=== PATIENT | male | born 1945 | race Two or more races ===

== ENCOUNTER 2016-05-03 23:58 | Inpatient (IN) | payer MEDICARE, MEDICAID ==
[~2016-05-03] VITALS: Ht 170.2 cm; Wt 69.4 kg
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
--- NOTE | 2016-05-04 00:20 | NUR ---
URINE SAMPLE OBTAINED FROM PT.
[2016-05-04 01:07] LABS: BASOPHILS % (AUTO) 0.3 % (0.0-2.0); EOSINOPHILS # (AUTO) 0.1 /CMM (0.0-0.7); EOSINOPHILS % (AUTO) 0.9 % (0.0-6.0); HEMATOCRIT 44 % (39-51); HEMOGLOBIN 14.5 g/dL (13.5-17.5); LYMPHOCYTES # (AUTO) 1.5 /CMM (0.8-4.8); LYMPHOCYTES % (AUTO) 21.5 % (20.0-44.0); MEAN CORPUSCULAR HEMOGLOBIN 29 PG (26.0-33.0); MEAN CORPUSCULAR HGB CONC 33 g/dl (31.0-36.0); MEAN CORPUSCULAR VOLUME 88 fL (80-96); MONOCYTES # (AUTO) 0.7 /CMM (0.1-1.30); MONOCYTES % (AUTO) 9.3 % (2.0-12.0); NEUTROPHILS # (AUTO) 4.9 /CMM (1.8-8.9); PLATELET COUNT (AUTO) 237 /CMM (150-450); RDW COEFFICIENT OF VARIATION 12.7 (11.5-15.0); RED BLOOD CELL COUNT(AUTO) 4.94 MIL/uL (4.5-6.0); WHITE BLOOD COUNT (AUTO) 7.2 K/uL (4.3-11.0)
[2016-05-04 01:14] LABS: APPEARANCE,URINE CLEAR (CLEAR); BILIRUBIN,URINE NEGATIVE (NEGATIVE); BLOOD, URINE TRACE-INTA Ery/uL (NEGATIVE); COLOR,URINE YELLOW (YELLOW); KETONES,URINE NEGATIVE (NEGATIVE); LEUKOCYTE ESTERASE ,URINE NEGATIVE (NEGATIVE); NITRITE, URINE NEGATIVE (NEGATIVE); PH,URINE 5.5 (5.0-8.0); PROTEIN,URINE NEGATIVE (NEGATIVE); UGLUCOSE NEGATIVE (NEGATIVE); UROBILINOGEN,URINE 0.2 EU/dL (0.2)
[2016-05-04 01:18] LABS: CALCIUM, SERUM 8.9 mg/dL (8.5-10.1); CARBON DIOXIDE 28 mmol/L (21-32); CHLORIDE 105 mmol/L (98-107); CREATININE 1.1 mg/dL (0.6-1.3); GLUCOSE 96 mg/dL (74-106); SODIUM SERUM 140 mmol/L (136-145); UREA NITROGEN, BLOOD 16 mg/dL (7-18)
[2016-05-04 01:19] LABS: ADD URINE CULTURE NO; BACTERIA,URINE None seen /HPF (None Seen); MUCUS,URINE Rare /LPF (None Seen); RBC,URINE 0-2 /HPF (0-2); SQUAMOUS EPITHELIAL CELL,UR Rare /HPF (None Seen); WBC,URINE 0-2 /HPF (0-3)
[2016-05-04 01:30] LABS: CANNABINOID, URINE NEGATIVE (NEGATIVE); PHENCYCLIDINE SCREEN,URINE NEGATIVE (NEGATIVE)
[2016-05-04 01:31] LABS: ALANINE AMINOTRANSFERASE 56 U/L (12-78); ALBUMIN 3.6 g/dL (3.4-5.0); ALCOHOL, BLOOD < 3 mg/dL (0-0); ALKALINE PHOSPHATASE 94 U/L (46-116); ASPARTATE AMINOTRANSFERASE 68 U/L (15-37); BILIRUBIN,DIRECT 0.2 mg/dL (0.0-0.2); BILIRUBIN,TOTAL 0.6 mg/dL (0.2-1.0); TOTAL PROTEIN, SERUM 7.5 g/dL (6.4-8.2)
[2016-05-04 01:33] LABS: ACETAMINOPHEN 0 ug/ml (10-30); SALICYLATE 2.4 mg/dL (2.8-20.0)
--- NOTE | 2016-05-04 01:48 | NUR ---
REPORT GIVEN TO SHIELA MILLER
[2016-05-04] MEDS ORDERED: OLANZAPINE 5 MG TABLET ONE (01:49)
[2016-05-04] MEDS ORDERED: OLANZAPINE 5 MG/TAB.RAPDIS PO ONE (02:00)
[2016-05-04 02:15] VITALS: BP 164/86
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
[2016-05-04] MEDS ORDERED: ACETAMINOPHEN 325 MG TABLET PO PRN (03:00)
[2016-05-04] MEDS ORDERED: MAGNESIUM HYDROXIDE 30 ML UDC PO PRN (03:00)
[2016-05-04] MEDS ORDERED: LORAZEPAM 0.5 MG TABLET PO PRN (03:00)
[2016-05-04] MEDS ORDERED: MAG HYDROX/AL HYDROX/SIMETH 30 ML UDC PO PRN (03:00)
[2016-05-04 08:00] VITALS: BP 129/59
[2016-05-04] MEDS: OLANZAPINE 5 MG/TAB.RAPDIS PO SCH ×2 (12:54→18:07)
[2016-05-04] MEDS: DIVALPROEX SODIUM 500 MG TABLET.DR PO SCH ×2 (14:07→20:30)
--- NOTE | 2016-05-04 15:52 | NUR ---
Initial discharge plan: Pt resides with his ex , Liane at [address] [facility] [phone] but will go live with his son, Felix [phone] at [address] [facility] [address] after discharge. IAM spoke with Felix and Felix confirmed the plan. IAM will follow up with MD and family and will help form safe and proper discharge.
[2016-05-04 16:00] VITALS: BP 132/67
--- NOTE | 2016-05-04 17:35 | NUR ---
DR. CLARKE IN TO SEE PT.
[2016-05-05] MEDS: OLANZAPINE 5 MG/TAB.RAPDIS PO SCH ×2 (08:23→17:22)
[2016-05-05] MEDS: DIVALPROEX SODIUM 500 MG TABLET.DR PO SCH ×2 (08:23→20:52)
[2016-05-05] MEDS: NICOTINE PATCH (14MG) 14 MG PATCH.TD24 TD SCH (08:24)
[2016-05-05 09:28] VITALS: BP 128/67
[2016-05-05 16:32] VITALS: BP 135/72
--- NOTE | 2016-05-05 17:30 | NUR ---
DR. CLARKE IN TO SEE PT.
--- NOTE | 2016-05-05 18:25 | NUR ---
DR. HINSON IN TO SEE PT.
--- NOTE | 2016-05-05 19:34 | NUR ---
GPS/RN NOTE: PATIENT'S SON VISITING, REQUESTING PRAVASTATIN AND VIT. D, NOTE LEFT FOR MD. PATIENT UP SITTING ON THE CHAIR. NO APPARENT DISTRESS NOTED.
[2016-05-05 20:04] VITALS: BP 155/80
[2016-05-06] MEDS: TEMAZEPAM 7.5 MG CAPSULE PO PRN ×2 (00:14→20:55)
--- NOTE | 2016-05-06 00:15 | NUR ---
GPS/RN NOTE: PATIENT C/O INSOMNIA, TEMAZEPAM 7.5 MG CAP 1 PO YESTERDAY
[2016-05-06 08:00] VITALS: BP 139/76
[2016-05-06] MEDS: NICOTINE PATCH (14MG) 14 MG PATCH.TD24 TD SCH (08:11)
[2016-05-06] MEDS: OLANZAPINE 5 MG/TAB.RAPDIS PO SCH ×2 (08:11→17:15)
[2016-05-06] MEDS: DIVALPROEX SODIUM 500 MG TABLET.DR PO SCH ×2 (08:11→20:55)
[2016-05-06] MEDS ORDERED: ERGOCALCIFEROL (VITAMIN D 2) 50,000 UNIT CAPSULE PO SCH (12:30)
[2016-05-06 15:58] VITALS: BP 118/81
[2016-05-06 19:47] VITALS: BP 140/76
[2016-05-06 20:00] VITALS: BP 140/76
[2016-05-06] MEDS: ATORVASTATIN 10 MG TABLET PO SCH (20:55)
[2016-05-06] MEDS ORDERED: PRAVASTATIN SODIUM 20 MG TABLET PO SCH (22:00)
[2016-05-07] MEDS: NICOTINE PATCH (14MG) 14 MG PATCH.TD24 TD SCH (08:43)
[2016-05-07] MEDS: OLANZAPINE 5 MG/TAB.RAPDIS PO SCH ×2 (08:43→17:45)
[2016-05-07] MEDS: DIVALPROEX SODIUM 500 MG TABLET.DR PO SCH ×2 (08:43→21:45)
[2016-05-07 08:51] VITALS: BP 130/73
[2016-05-07 16:42] VITALS: BP 122/65
[2016-05-07 20:18] VITALS: BP 121/73
[2016-05-07] MEDS: ATORVASTATIN 10 MG TABLET PO SCH (21:45)
[2016-05-08] MEDS: TEMAZEPAM 7.5 MG CAPSULE PO PRN ×2 (01:26→21:25)
[2016-05-08 08:34] VITALS: BP 118/67
[2016-05-08] MEDS: OLANZAPINE 5 MG/TAB.RAPDIS PO SCH ×2 (09:02→17:26)
[2016-05-08] MEDS: DIVALPROEX SODIUM 500 MG TABLET.DR PO SCH ×2 (09:02→21:25)
[2016-05-08] MEDS: NICOTINE PATCH (14MG) 14 MG PATCH.TD24 TD SCH (09:02)
[2016-05-08 16:04] VITALS: BP 119/72
[2016-05-08 20:00] VITALS: BP 132/72
[2016-05-08] MEDS: ATORVASTATIN 10 MG TABLET PO SCH (21:25)
[2016-05-09 06:51] LABS: BASOPHILS % (AUTO) 0.5 % (0.0-2.0); EOSINOPHILS # (AUTO) 0.2 /CMM (0.0-0.7); EOSINOPHILS % (AUTO) 2.9 % (0.0-6.0); HEMATOCRIT 41 % (39-51); HEMOGLOBIN 14.1 g/dL (13.5-17.5); LYMPHOCYTES % (AUTO) 31.6 % (20.0-44.0); MEAN CORPUSCULAR HEMOGLOBIN 30 PG (26.0-33.0); MEAN CORPUSCULAR HGB CONC 34 g/dl (31.0-36.0); MEAN CORPUSCULAR VOLUME 89 fL (80-96); MONOCYTES # (AUTO) 0.8 /CMM (0.1-1.30); MONOCYTES % (AUTO) 12.3 % (2.0-12.0); NEUTROPHILS # (AUTO) 3.3 /CMM (1.8-8.9); NEUTROPHILS % (AUTO) 52.7 % (43.0-81.0); PLATELET COUNT (AUTO) 201 /CMM (150-450); RDW COEFFICIENT OF VARIATION 12.7 (11.5-15.0); RED BLOOD CELL COUNT(AUTO) 4.64 MIL/uL (4.5-6.0); WHITE BLOOD COUNT (AUTO) 6.3 K/uL (4.3-11.0)
[2016-05-09 08:00] VITALS: BP 112/69
[2016-05-09] MEDS: DIVALPROEX SODIUM 500 MG TABLET.DR PO SCH ×2 (08:32→22:19)
[2016-05-09] MEDS: NICOTINE PATCH (14MG) 14 MG PATCH.TD24 TD SCH (08:33)
[2016-05-09] MEDS: OLANZAPINE 5 MG/TAB.RAPDIS PO SCH ×2 (08:33→17:40)
[2016-05-09 13:53] LABS: CALCIUM, SERUM 8.3 mg/dL (8.5-10.1)
[2016-05-09 16:00] VITALS: BP 155/84
[2016-05-09 20:14] VITALS: BP 113/58
[2016-05-09] MEDS: ATORVASTATIN 10 MG TABLET PO SCH (22:19)
[2016-05-10 08:00] VITALS: BP 124/74
[2016-05-10] MEDS: OLANZAPINE 5 MG/TAB.RAPDIS PO SCH ×2 (09:06→17:59)
[2016-05-10] MEDS: DIVALPROEX SODIUM 500 MG TABLET.DR PO SCH ×2 (09:06→22:03)
[2016-05-10] MEDS: NICOTINE PATCH (14MG) 14 MG PATCH.TD24 TD SCH (09:06)
[2016-05-10 16:00] VITALS: BP 143/92
[2016-05-10 19:50] VITALS: BP 109/67
[2016-05-10] MEDS: ATORVASTATIN 10 MG TABLET PO SCH (22:03)
[2016-05-10] MEDS: TEMAZEPAM 7.5 MG CAPSULE PO PRN (22:45)
[2016-05-11 08:00] VITALS: BP 123/71
[2016-05-11] MEDS: OLANZAPINE 5 MG/TAB.RAPDIS PO SCH (08:45)
[2016-05-11] MEDS: DIVALPROEX SODIUM 500 MG TABLET.DR PO SCH (08:45)
[2016-05-11] MEDS: NICOTINE PATCH (14MG) 14 MG PATCH.TD24 TD SCH (08:46)
--- NOTE | 2016-05-11 10:29 | NUR ---
Discharge note: will discharge home with son, Felix [phone] at [address] [facility] [address] via private car at 12:00PM . Pts son will pick him up. Pt. needs RX. Pt. will then go to [place] to live with another son, who will arrange after care with a psychiatrist in [place]. Discharge paperwork will be signed and discharge instruction will be provided to the pt and pt's son. Son needs to sign the continuing care acknowledgement form, which means he is taking responsibility for taking care of his father. Pt is calm and cooperative, denies suicidal/homicidal ideations, mood is appropriate to situation with mood full range affect. Pt. agrees with discharge plan.
--- NOTE | 2016-05-11 11:00 | NUR ---
RECEIVED ORDERS FROM PSYCHIATRIST FOR DC TODAY.PT. AGREEABLE.ANXIOUS TO GO HOME.
--- NOTE | 2016-05-11 11:25 | NUR ---
REFUSED DISCHARGE PHOTOS.
--- NOTE | 2016-05-11 13:05 | NUR ---
FAMILY MEMBER IN FOR DC DRAW OPERATOR TO HOME. ALL PAPERS SIGNED. PT. DENIES SUICIDAL IDEATION OR HOMICIDAL IDEATION.TAKEN TO LOBBY VIA W/C ACCOMPANIED BY PLATE SETTER AND FAMILY MEMBER. ALL BELONGINGS GIVEN TO PT.
== END 2016-05-11 13:05 | disposition home or self-care (01) | DRG 885 ==
LOC: ER 05-04 → GPS 05-04 02:05
PROVIDERS: ADMIT Psychiatry & Neurology Psychiatry; ATTEND Family Medicine
DX: F29 Unspecified psychosis not due to a substance or known physiological condition (principal); F03.90 Unspecified dementia, unspecified severity, without behavioral disturbance, psychotic disturbance, mood disturbance, and anxiety; F17.210 Nicotine dependence, cigarettes, uncomplicated; I10 Essential (primary) hypertension; Z95.1 Presence of aortocoronary bypass graft; Z73.6 Limitation of activities due to disability; F39 Unspecified mood [affective] disorder
CPT/HCPCS: 36415; 80048-TC; 80061-TC; 80076-TC; 80164-TC; 80305; 81000-TC; 82565-TC; 85025-TC; 87081-TC; A4606; G0480; G6039-TC; Z7610